=== PATIENT | female | born 1950 | race Caucasian/White ===

== ENCOUNTER 2019-06-17 06:49 | Day surgery (SDC) | payer MEDICARE ==
[2019-06-16 11:51] VITALS: BMI 25.5
[2019-06-17] MEDS ORDERED: Prevnar 13-Val Conj/PF 0.5 ML SYRINGE IM ONE (09:00)
[2019-06-17] MEDS ORDERED: Iopamidol-M 300 61% 15 ML VIAL ONE (09:55)
[2019-06-17 11:33] VITALS: BP 132/77; TEMP 98
--- NOTE | 2019-06-17 13:16 | RAD ---
Myelogram lumbar Myelogram cervical: DATE: 06/17/2019 HISTORY: 68-year-old female with cervicalgia, low back pain, and lumbar radiculopathy. TECHNIQUE: Signed informed consent obtained. Patient placed prone on fluoroscopy table. Lower back prepped and d raped in usual sterile fashion. 25-gauge needle used to apply buffered lidocaine. 22-gauge spinal needle advanced under intermittent fluoroscopy from right paramedian interlaminar approach at L4-5. 1 0 mL CSF slowly drained and discarded. 10 mL Isovue-M 300 slowly injected into the thecal sac. Needle removed. Fluoroscopy table tilted prone Trendelenburg allowing contrast to enter cervical spin e. Patient taken to CT scan. Patient tolerated procedure well. No complications. IMPRESSION: Successful lumbar and cervical myelogram
--- NOTE | 2019-06-17 15:17 | CT ---
CT LUMBAR MYELOGRAM: INDICATION: History of lumbar disk degenerative disease and radiculopathy. COMPARISON: Prior MRI of the lumbar spine dated 07/03/2015. FINDINGS: Since the comparison examination, there has been revision of the posterolateral interbody fusion, now with a left pedicular and interconnecting kasia construct spanning L2 through S1. On the right, the p osterior lateral interbody fusion construct spans L1 through L4. There are laminectomy changes at L2 -3 and L3-4. There is postoperative change of a right L2-3 facetectomy and laminectomy. There are bi lateral SI joint arthrodesis screws and remote pedicle screw hole sites on the right at L5 and S1. No definite bridging bone is seen involving the intervertebral disk spaces at L2-3, L3-4, and L5-S1. Conus is seen to terminate at approximately L1. Visualized aspects of the retroperitoneum are unremarkable-appearing. At L5-S1, there is a residual disk-osteophyte complex with loss of disk space height and facet hypert rophy inducing severe right and mild to moderate left neural foraminal narrowing which has progressed from the prior exam. At L4-5, there is a residual disk bulge with facet hypertrophy inducing mild bilateral neural foramin al narrowing which is slightly more pronounced than on the prior exam. At L3-4, there is no appreciable central canal narrowing. There is a residual osteophyte complex ind ucing mild bilateral neural foraminal narrowing, right greater than left. This is slightly more pron ounced than on the prior exam. At L2-3, there is stable mild right neural foraminal narrowing, but no appreciable central canal or n eural foraminal narrowing. At L1-2, there is a mild broad-based bulge. No appreciable central canal or neural foraminal narrowi ng. At T12-L1, there is no appreciable central canal or neural foraminal narrowing. IMPRESSION: Postoperative lumbar spine with multilevel neural foraminal narrowing as detailed above. POS: KERRY
--- NOTE | 2019-06-17 15:17 | CT ---
CT CERVICAL MYELOGRAM 06/17/19 INDICATION: History of cervical neck pain and radiculopathy. COMPARISON: MR of the cervical spine dated 07/03/15. TECHNIQUE: Multiple CT images were obtained with introduction of intrathecal administration of Isovue solution. Please see the separately dictated lumbar myelogram for details concerning the injection technique. FINDINGS: There is stable postoperative changes of an anterior interbody fusion of C4-5 and C5-6. There is rachael d osseous incorporation of interbody bone graft. There is ankylosis of the facet complexes from C2 th rough C6 bilaterally. There are posterior facet fusion devices seen at the C4-5 and C5-6 levels. There is slight anterior translation of C6 on C7 which is likely degenerative in nature. The visualized aspects of the posterior fossa appear within normal limits. No acute fracture is evide nt. At C2-C3, there is severe left and moderate to severe right facet joint degenerative change but no ap preciable central canal or neural foraminal narrowing. At C3-C4, there is severe bilateral facet joint degenerative change. There is no appreciable central canal or neural foraminal narrowing. At C4-C5, there is no appreciable central canal or neural foraminal narrowing. At C5-C6, there is no appreciable central canal or neural foraminal narrowing. At C6-C7, there is no appreciable central canal or neural foraminal narrowing. There is advanced face t joint degenerative change particularly on the right. At C7-T1, there is no appreciable central canal or neural foraminal narrowing. The visualized lung apices demonstrates a small sub 4 mm pulmonary nodule within the right upper lobe . No enlarged lymph nodes are evident. IMPRESSION: 1. Postoperative cervical spine consistent with an ACDF at C4-5 and C5-6. 2. Ankylosis of the posterior facet complexes of C2 through C6. There is operative ankylosis of the posterior facets at C4-5 and C5-6. 3. Slight grade I anterior translation of C6 on C7 is likely degenerative. 4. No appreciable central canal or neural foraminal narrowing demonstrated. POS: BH
== END 2019-06-17 10:45 | disposition home or self-care (01) ==
LOC: RAD 06:49
PROVIDERS: ATTEND Neurological Surgery
PROC: B01B1ZZ Fluoroscopy of Spinal Cord using Low Osmolar Contrast (ICD-10-PCS; principal; 2019-06-17)
DX: M43.22 Fusion of spine, cervical region (principal); M51.16 Intervertebral disc disorders with radiculopathy, lumbar region; M48.061 Spinal stenosis, lumbar region without neurogenic claudication; F41.9 Anxiety disorder, unspecified; M19.90 Unspecified osteoarthritis, unspecified site; I10 Essential (primary) hypertension; F32.9 Major depressive disorder, single episode, unspecified; M79.7 Fibromyalgia; Z79.891 Long term (current) use of opiate analgesic; Z79.899 Other long term (current) drug therapy; Z88.0 Allergy status to penicillin; Z91.040 Latex allergy status; Z98.1 Arthrodesis status; Z98.890 Other specified postprocedural states
CPT/HCPCS: 62305; 72126; 72132

== ENCOUNTER 2019-07-23 13:02 | Outpatient (CLI) | payer MEDICARE ==
--- NOTE | 2019-07-23 14:36 | BD ---
DEXA BONE MINERAL DENSITY STUDY: HISTORY: Osteoporosis screening. COMPARISON: None. FINDINGS: BMD (g/cm2) Right Forearm: One-third 0.624 T-Score: -1.2 0.6 Mid 0.549 T-Score: -1.1 0.7 Ultra distal 0.430 T-Score: 0.7 2.0 Total 0.548 T-Score: -0.6 1.1 Left Forearm: One-third 0.657 T-Score: -0.6 1.2 Mid 0.545 T-Score: -1.1 0.6 Ultra distal 0.461 T-Score: 0.3 1.6 WHO CLASSIFICATION: Osteopenia Impression: Osteopenia with elevated fracture risk. POS: HOME
== END 2019-07-23 13:03 | disposition home or self-care (01) ==
LOC: BICMAMMO 13:02
PROVIDERS: ATTEND Internal Medicine Rheumatology
DX: M81.0 Age-related osteoporosis without current pathological fracture (principal); M85.832 Other specified disorders of bone density and structure, left forearm; M85.831 Other specified disorders of bone density and structure, right forearm
CPT/HCPCS: 77080

== ENCOUNTER 2019-12-05 17:21 | Inpatient (IN) | payer MEDICARE, OTHER ==
[2019-12-05 18:02] LABS: #Eosinphils 0.1 thou/uL (0.0-0.7); #Lymphocytes 1.7 thou/uL (1.20-3.40); #Monocytes 0.7 thou/uL (0.11-0.59); #Neutrophils 3.8 thou/uL (1.40-6.50); %Basophils 0.7 % (0.0-1.0); %Eosinophils 1.5 % (0.0-10.0); %Lymphocytes 26.6 % (21.0-51.0); %Monocytes 11.5 % (0.0-10.0); %Neutrophils 59.7 % (42.0-75.0); Hemoglobin 9.3 g/dL (12.0-16.0); Mean Corpuscular Hemoglobin 21.4 pg (27.0-31.0); Mean Corpuscular Volume 71.4 fL (78.0-98.0); Mean Platelet Volume 10.8 fL (7.4-10.4); Platelet Count 325 thou/uL (130-400); RBC Distribution Width 16.8 % (11.5-14.5); Red Blood Cell (RBC) Count 4.35 mill/uL (4.20-5.40); White Blood Cell (WBC) Count 6.4 thou/uL (4.8-10.8)
[2019-12-05] MEDS ORDERED: Diltiazem 125 MG/25 ML ONE (18:13)
[2019-12-05 18:15] LABS: ALT (SGPT) 19 U/L (8-55); AST (SGOT) 35 U/L (5-34); Alkaline Phosphatase 145 U/L (40-110); Anion Gap 14 mmol/L (10-20); Anisocytosis SLIGHT = 6-15 cells (100X) (0-5/hpf); BUN (Urea Nitrogen) 17 mg/dL (9.8-20.1); Bilirubin, Total 0.2 mg/dL (0.2-1.2); Calc. Creatinine Clearance 0 mL/min (70-130); Calcium 9.2 mg/dL (7.8-10.44); Carbon Dioxide 25 mmol/L (23-31); Chloride 105 mmol/L (98-107); Estimated GFR-MDRD 74; Globulin 3.5 g/dL (2.4-3.5); Glucose 95 mg/dL (80-115); Hypochromia SLIGHT = 6-15 cells (100X) (0-5/hpf); MDiff Complete? YES; Microcytosis SLIGHT = 6-15 cells (100X) (0-5/hpf); Ovalocytes SLIGHT = 2-5 cells (100X) (0-1/hpf); Platelet Morphology Comment Appears Adequate; Polychromasia SLIGHT = 2-3 cells (100X) (0-2/hpf); Potassium 4.1 mmol/L (3.5-5.1); Protein, Total 7.5 g/dL (6.0-8.3); Sodium 140 mmol/L (136-145)
[2019-12-05] MEDS ORDERED: Aspirin Chewable 81 MG TAB ONE (18:28)
--- NOTE | 2019-12-05 18:32 | PDOC.HHP ---
Hospitalist HPI - History of Present Illness Heart palpitations History of Present Illness: PCP: Dr. Cb Jenkins The patient is a 68-year-old female with a past medical history significant for cardiac arrhythmia (atrial fibrillation, not on any anticoagulation) with multiple cardiac ablations (followed by Dr. Manzano), atrial septal defect and iron deficiency anemia that presents to the emergency department for the above complaint. Patient reports having heart palpitations over the past 3 to 4 days. She reports that she feels like her heart is racing. She reports associated dizziness, SOB, weakness and fatigue. She denies any headache, ataxia, focal motor weakness, changes in speech or vision. Denies any chest pain, cough, wheezing or hemoptysis. She had recent cardiac ablation with Pacemaker insertion on 11/22/19. Today, she called Dr. Lubin, who instructed her to take an extra half dose of her home medication Bystolic. She took 2.5mg at approximately 1430 this afternoon as instructed. This did not relieve any of her symptoms. She was instructed to go to the emergency department for further evaluation. She denies any chest pain or swelling to her lower extremities. She reports some a ssociated shortness of breath. Denies any history of asthma/COPD, cough or wheezing. She denies any recent fever or chills. She denies any abdominal pain, hemoptysis, hematochezia or melena. She reports recently starting an iron supplement patch, that she ordered online. She was unable to tolerate iron infusions in the past. She has no other complaints at this time. ED Course: VITAL SIGNS [place] Dec 05, 2019 17:23 STANLEY Benson Lauren BP: 105/85, Pulse: 138, Resp: 36, Temp: 98.8 (Oral), Pain: 4, O2 sat: 96 on (Room Air), Time: 12/05/2019 17:23. VITAL SIGNS [place] Dec 05, 2019 17:31 STANLEY Field Cheryl BP: 124/85, Pulse: 140, Resp: 23, Temp: 98.2 (Oral), O2 sat: 99 on (Room Air), Time: 12/05/2019 17:31. Medication Administration: aspirin oral 325 mg Oral Ordered 18:24 12/05/2019 dilTIAZem intravenous 5 mg/hr IV Fluid Infusion Given 18:23 12/05/2019 sodium chloride 0.9 % intravenous 1 L IV Fluid Infusion Given 18:15 12/05/2019 dilTIAZem intravenous 20 mg IV Push Given 18:10 12/05/2019 Hospitalist ROS - Review of Systems All other systems reviewed; all pertinent +/- noted in HPI/Subj - Medication Medications: Bystolic [place] Dec 05, 2019 18:07 STANLEY Lemons Jennifer tablet : Strength - 5 mg : ORAL Patient Dose: 1 tab(s) Oral once a day. Cymbalta [place] Dec 05, 2019 18:08 STANLEY Lemons Jennifer capsule,delayed release(DR/EC) : Strength - 60 mg : ORAL Patient Dose: 1 tab(s) Oral once a day. ALPRAZolam [place] Dec 05, 2019 18:08 STANLEY Lemons Jennifer tablet : Strength - 1 mg : ORAL Patient Dose: 1 tab(s) Oral As Needed. QUEtiapine [place] Dec 05, 2019 18:09 STANLEY Lemons Jennifer tablet : Strength - 50 mg : ORAL Patient Dose: 1 tab(s) Oral once a day (at bedtime). Pepcid oral [place] Dec 05, 2019 18:09 STANLEY Lemons Jennifer tablet : Strength - 20 mg : ORAL Patient Dose: 1 tab(s) Oral once a day (in the morning). Iron patch, unknown strength, takes daily. Allergies: penicillins, latex Hospitalist History - Past Medical History Source: patient, RN notes reviewed Cardiac: reports: AFIB (Status post ablation, discontinued Coumadin), Other (Atrial septal defect) Gastrointestinal: reports: GERD Heme/Onc: reports: Iron deficiency anemia (Started iron patch, purchased online.) Psych: reports: Depression Musculoskeletal: reports: Chronic low back pain Rheumatologic: reports: Fibromyalgia - Past Surgical History Past Surgical History: reports: Other (Cardiac ablation x3, most recent 11/21. Pacemaker. Back surgery, bilateral knee surgery) - Family History Family History: reports: cardiac disorder (Brother) - Social History Smoking Status: Never smoker Alcohol: reports: None Drugs: reports: none Living Situation: With Family Occupation: Retired Activity level: independent ambulation - Exam General Appearance: NAD, awake alert. negative: ill appearing General - other findings: Anxious appearing ENT: normocephalic atraumatic Neck: supple, symmetric, no JVD Heart: no gallops, no rubs, irregular, II/IV Respiratory: CTAB, no wheezes, no rales, no ronchi, normal chest expansion, tachypneic (Mild) Gastrointestinal: soft, non-tender, non-distended, normal bowel sounds, no bruit, no guarding, no rigidity Extremities: no cyanosis, no edema Skin: no rashes Neurological: cranial nerve grossly intact, no focal deficits Musculoskeletal: normal tone, normal strength Psychiatric: normal affect, A&O x 3 Hospitalist Results - Labs Result Diagrams: 12/05/19 17:49 12/05/19 17:49 Lab results: WBC 6.4 thou/uL (4.8-10.8) 12/05/19 17:49 Hgb 9.3 g/dL (12.0-16.0) L 12/05/19 17:49 Hct 31.1 % (36.0-47.0) L 12/05/19 17:49 MCV 71.4 fL (78.0-98.0) L 12/05/19 17:49 Plt Count 325 thou/uL (130-400) 12/05/19 17:49 Neutrophils % 59.7 % (42.0-75.0) 12/05/19 17:49 Sodium 140 mmol/L (136-145) 12/05/19 17:49 Potassium 4.1 mmol/L (3.5-5.1) 12/05/19 17:49 Chloride 105 mmol/L (98-107) 12/05/19 17:49 Carbon Dioxide 25 mmol/L (23-31) 12/05/19 17:49 BUN 17 mg/dL (9.8-20.1) 12/05/19 17:49 Creatinine 0.78 mg/dL (0.6-1.1) 12/05/19 17:49 Glucose 95 mg/dL (80-115) 12/05/19 17:49 Calcium 9.2 mg/dL (7.8-10.44) 12/05/19 17:49 Total Bilirubin 0.2 mg/dL (0.2-1.2) 12/05/19 17:49 AST 35 U/L (5-34) H 12/05/19 17:49 ALT 19 U/L (8-55) 12/05/19 17:49 Alkaline Phosphatase 145 U/L (40-110) H 12/05/19 17:49 Troponin I 0.047 ng/mL (< 0.028) H 12/05/19 17:49 B-Natriuretic Peptide 185.1 pg/mL (0-100) H 12/05/19 17:49 Serum Total Protein 7.5 g/dL (6.0-8.3) 12/05/19 17:49 Albumin 4.0 g/dL (3.4-4.8) 12/05/19 17:49 - EKG Interpretation EKG: Rate of 140. Rhythm is supraventricular tachycardia versus atrial fibrillation with rapid ventricular response. Normal axis. KS interval is absent. Normal QRS duration. T wave inversions are present in lead II and aVF and lead III and ST segment depression in V5 V6 consistent with inferior lateral ischemia. Hospitalist H&P A/P - Problem (1) SVT (supraventricular tachycardia) Code(s): I47.1 - SUPRAVENTRICULAR TACHYCARDIA Status: Acute (2) Heart palpitations Code(s): R00.2 - PALPITATIONS Status: Acute (3) Elevated troponin Code(s): R77.8 - OTHER SPECIFIED ABNORMALITIES OF PLASMA PROTEINS Status: Acute (4) History of atrial fibrillation Code(s): Z86.79 - PERSONAL HISTORY OF OTHER DISEASES OF THE CIRCULATORY SYSTEM Status: Acute (5) Atrial septal defect Code(s): Q21.1 - ATRIAL SEPTAL DEFECT Status: Chronic (6) Iron deficiency anemia Code(s): D50.9 - IRON DEFICIENCY ANEMIA, UNSPECIFIED Status: Chronic (7) Fibromyalgia Status: Chronic (8) Depression Code(s): F32.9 - MAJOR DEPRESSIVE DISORDER, SINGLE EPISODE, UNSPECIFIED Status: Chronic - Plan Plan: 68/F with H cardiac arrhythmia, ASD, DEVANTE presents for heart palpitations. Admit to telemetry floor, observation status. Expected length of stay less than 2 midnights. Presented tachycardic 138 bpm, tachypneic 36 RR, NL BP and SPO2. EKG SVT 140 bpm, T inversions in leads II, 3, aVF. ST depression in leads V5 and V6. Troponin 0.047, BNP 185.1. Hgb 9.3, HCT 31.1 Hear Score 6. Wells PE score 3, moderate risk. CHADVASC score 2. HASBLED score 1. #SVT Upon assessment, HR [id number]. BP stable. Intermittent atrial fibrillation on monitor. Cardizem 7.5 mg/HR infusing. Give metoprolol 5 mg IVP x1 now. Give Lovenox 1 mg/kg. Continue aspirin. Consult cardiology and electrophysiology. Obtain recent echo and cardiac stress test results from Dr. Arrieta's office. Check TSH, FLP, mag level, UA. Check D-dimer. #Heart palpitations Likely related to problem 1. #Elevated troponins Likely demand ischemia. Trend troponins. salon professional. #History of atrial fibrillation History of cardiac ablations x3. Most recent ablation 11/22/2019. Currently not on any anticoagulation. She has taken Coumadin in the past. #Atrial septal defect Per patient, discovered in 2001. #Iron deficiency anemia Appears stable. Presented Hgb 9.3, HCT 31.1. Denies any hematochezia, melena, hemoptysis. Reports starting iron patch yesterday, that she purchased online. Reports that she does not tolerate iron infusions. Will check iron studies. #Fibromyalgia Continue home dose Cymbalta. #Depression Appears stable. Denies SI/HI. Continue patient's home dose of Cymbalta. No DVT prophylaxis. No GI prophylaxis. Full code. Designated medical decision-maker is her Jose at [phone]. Discussed case with Dr. Putnam. .
[2019-12-05 18:37] LABS: CKMB 0.9 ng/mL (0-6.6)
[2019-12-05] MEDS ORDERED: Nitroglycerin 0.4 MG TAB (25 Tab Bottle) SL PRN (18:53)
[2019-12-05] MEDS ORDERED: Enoxaparin Sodium 100 MG/ML SYRINGE ONE (18:55)
[2019-12-05] MEDS ORDERED: Metoprolol Tartrate 5 MG/5 ML VIAL ONE (18:55)
[2019-12-05] MEDS ORDERED: Acetaminophen 325 MG TAB PO PRN (18:59)
[2019-12-05] MEDS ORDERED: Ondansetron ODT 4 MG TAB PO PRN (18:59)
[2019-12-05] MEDS ORDERED: Ondansetron PF 4 MG/2 ML Vial IVP PRN (18:59)
--- NOTE | 2019-12-05 19:29 | RAD ---
Portable frontal chest radiograph: 12/05/2019 COMPARISON: 08/11/2019 HISTORY: Palpitations, tachycardia FINDINGS: Lungs are clear. Heart and mediastinal contours appear within normal limits. There is a sin gle lead transvenous pacing device inserted via a left subclavian approach with a lead overlying the region of the right atrium. IMPRESSION: No acute findings.
[2019-12-05 19:37] LABS: Reticulocyte Count 1.1 % (0.5-1.5)
[2019-12-05 19:40] LABS: PTT 31.9 sec (22.9-36.1); Prothrombin Time 13.3 sec (12.0-14.7)
[2019-12-05 19:41] LABS: D-Dimer Test 1.76 *mcg/mL (0.27-0.43)
[2019-12-05 19:47] LABS: Iron 25 ug/dL (50-170); Iron Binding Capacity, Total 419 mcg/dL (265-497)
[2019-12-05 19:48] LABS: Magnesium 2.1 mg/dL (1.6-2.6)
[2019-12-05 19:57] LABS: Troponin I 0.045 ng/mL (< 0.028)
[2019-12-05 20:12] LABS: Ferritin 10.58 ng/mL (10-291); Thyroid Stimulating Hormone 0.4116 uIU/mL (0.35-4.94)
[2019-12-05] MEDS ORDERED: Diltiazem HCl 125 MG, Admixture Fee 1 EACH in Sodium Chloride 0.9% 100 ML IVPB SCH (22:00)
[2019-12-05 23:10] LABS: Bacteria/HPF None Seen HPF (None Seen); Bilirubin Negative (Negative); Blood, Urine Negative (Negative); Clarity Clear (Clear); Glucose, Urine (Dipstick) Normal (Negative); Ketone, Urine Negative (Negative); Leukocyte 75 Leu/uL (Negative); Nitrite Negative (Negative); Protein, Urine (Dipstick) 10 mg/dL (Neg-Trace); RBC/HPF 0-3 HPF (0-3); Squamous Epithelial None Seen HPF (0-3); Urobilinogen Normal mg/dL (Less than 2); pH, Urine 6.5 (5.0-9.0)
[2019-12-05 23:53] LABS: Troponin I 0.043 ng/mL (< 0.028)
[2019-12-06 00:20] VITALS: BMI 35.6
[2019-12-06] MEDS: ALPRAZolam 1 MG TAB PO PRN ×2 (00:42→20:06)
[2019-12-06] MEDS ORDERED: Digoxin 0.5 MG/2 ML AMP SLOW IVP SCH (06:00)
[2019-12-06 06:27] LABS: Band 1 % (5-11); Eosinophils 4 % (0-10); Hemoglobin 7.7 g/dL (12.0-16.0); Hypochromia SLIGHT = 6-15 cells (100X) (0-5/hpf); Lymphocytes 40 % (21-51); MDiff Complete? YES; Mean Corpuscular HGB CONC 30.9 g/dL (32.0-36.0); Mean Corpuscular Hemoglobin 21.9 pg (27.0-31.0); Mean Corpuscular Volume 70.8 fL (78.0-98.0); Mean Platelet Volume 10.6 fL (7.4-10.4); Microcytosis SLIGHT = 6-15 cells (100X) (0-5/hpf); Monocytes 1 % (0-10); Neutrophil 54 % (42-75); Platelet Count 252 thou/uL (130-400); Platelet Morphology Comment Appears Adequate; RBC Distribution Width 16.8 % (11.5-14.5); Red Blood Cell (RBC) Count 3.53 mill/uL (4.20-5.40); White Blood Cell (WBC) Count 6.3 thou/uL (4.8-10.8)
[2019-12-06] MEDS ORDERED: Enoxaparin Sodium 100 MG/ML SYRINGE SC SCH (09:00)
[2019-12-06 09:14] LABS: Anion Gap 10 mmol/L (10-20); BUN (Urea Nitrogen) 13 mg/dL (9.8-20.1); Calc. Creatinine Clearance 109 mL/min (70-130); Calcium 9.2 mg/dL (7.8-10.44); Carbon Dioxide 25 mmol/L (23-31); Cardiac Risk 3.1 (Less than 4.5); Chloride 108 mmol/L (98-107); Cholesterol 190 mg/dl (< 200 Desired); Estimated GFR-MDRD 82; Glucose 97 mg/dL (80-115); HDL Cholesterol 62 mg/dL (>60 Neg Risk); LDL Cholesterol, Calculated 107 mg/dL; Potassium 3.6 mmol/L (3.5-5.1); Sodium 139 mmol/L (136-145); Triglycerides 105 mg/dL (Less than 150)
[2019-12-06] MEDS: Nebivolol HCl 5 MG TAB PO SCH (09:47)
[2019-12-06] MEDS: DULoxetine 60 MG CAP PO SCH (09:47)
[2019-12-06] MEDS: Aspirin 81 mg Enteric Coated Tablet PO SCH (09:47)
[2019-12-06 11:04] LABS: SARS-CoV-2 MS2 Positive; SARS-CoV-2 N Gene Negative; SARS-CoV-2 S Gene Negative; SARS-CoV-2 by NAA Not Detected (NotDetected); SARS-CoV-2 orf1ab Negative
[2019-12-06] MEDS ORDERED: Morphine 2 MG/ML VIAL SLOW IVP PRN (12:18)
[2019-12-06] MEDS ORDERED: Flecainide 50 MG TAB PO SCH (12:30)
--- NOTE | 2019-12-06 13:33 | PDOC.HOSPP ---
- Subjective Encounter Date: 12/06/19 Encounter Time: 10:15 Subjective: no chest pain, has palpitations/uneasy feeling no fever, cough or myalgias has chronic back pain - Objective Vital Signs & Weight: Vital Signs (12 hours) Temp Pulse Resp BP Pulse Ox 12/06/19 11:56 98.6 F 127 H 18 124/88 100 12/06/19 07:44 98.1 F 128 H 18 128/85 100 12/06/19 06:31 82 12/06/19 04:40 63 16 114/69 12/06/19 01:44 82 18 112/62 99 Weight Weight 194 lb 12.8 oz I&O: 12/05/19 12/06/19 12/07/19 06:59 06:59 06:59 Intake Total 700 Output Total 1260 Balance -560 Result Diagrams: 12/06/19 05:01 12/06/19 08:39 Hospitalist ROS - Medication Medications: Active Medications Generic Name Dose Route Start Last Admin Trade Name Freq PRN Reason Stop Dose Admin Alprazolam 1 mg 12/05/19 19:01 12/06/19 00:42 Alprazolam 1 Mg Tab PO 1 mg DAILYPRN PRN Administration Anxiety Aspirin 81 mg 12/06/19 09:00 12/06/19 09:47 Aspirin 81 Mg Enteric Coated Tablet PO 81 mg DAILY ANGELA Administration Duloxetine HCl 60 mg 12/06/19 09:00 12/06/19 09:47 Duloxetine 60 Mg Cap PO 60 mg DAILY ANGELA Administration Diltiazem HCl 125 mg/ 125 mls @ 7.5 mls/hr 12/05/19 22:00 12/06/19 09:45 Miscellaneous Medication 1 IVPB 125 mls each/ Sodium Chloride INF ANGELA Administration Protocol Morphine Sulfate 2 mg 12/06/19 12:18 12/06/19 12:25 Morphine 2 Mg/Ml Vial SLOW IVP 2 mg Q6H PRN Administration Severe Pain (7-10) Nebivolol 5 mg 12/06/19 09:00 12/06/19 09:47 Nebivolol Hcl 5 Mg Tab PO 5 mg DAILY ANGELA Administration Quetiapine Fumarate 50 mg 12/05/19 21:00 12/05/19 22:53 Quetiapine Fumarate 25 Mg Tab PO 50 mg HS ANGELA Administration - Exam General Appearance: awake alert Eye: PERRL, anicteric sclera ENT: no oropharyngeal lesions, moist mucosa Neck: supple, no JVD Heart: no murmur, irregular Respiratory: no wheezes, no rales Gastrointestinal: soft, non-tender, non-distended, normal bowel sounds Extremities: no cyanosis, no edema Neurological: cranial nerve grossly intact, no focal deficits Psychiatric: normal affect, A&O x 3 Hosp A/P (1) Atrial fibrillation with RVR Code(s): I48.91 - UNSPECIFIED ATRIAL FIBRILLATION Status: Acute (2) History of atrial fibrillation Code(s): Z86.79 - PERSONAL HISTORY OF OTHER DISEASES OF THE CIRCULATORY SYSTEM Status: Chronic (3) Atrial septal defect Code(s): Q21.1 - ATRIAL SEPTAL DEFECT Status: Chronic (4) Depression Code(s): F32.9 - MAJOR DEPRESSIVE DISORDER, SINGLE EPISODE, UNSPECIFIED Status: Chronic Qualifiers: Depression Type: major depressive disorder Psychotic features: without psychotic features (5) Fibromyalgia Status: Chronic (6) Iron deficiency anemia Code(s): D50.9 - IRON DEFICIENCY ANEMIA, UNSPECIFIED Status: Chronic - Plan is on cardizem drip, recent pcm insertion on 11/21, h/o prior ablations, EP consultation h/h 09/10, mcv is 70, likely has chronic anemia, needs anticoagulation, will consult GI continue bystolic, full dose lovenox (stop if she bleeds), seroquel, synthroid dc aspirin for now change status to inpatient, will require procedures given low Hb and rvr with afib
[2019-12-06] MEDS ORDERED: HYDROcodone/Acetaminophen 10/325 mg Tablet PO PRN (14:53)
--- NOTE | 2019-12-06 14:56 | CON ---
DATE OF CONSULTATION: CONSULTING PHYSICIAN: Ole Lubin MD. REASON FOR CONSULTATION: I am evaluating Ms. Blue at [facility] for recurrent atrial tachycardia with recent ablation . PROBLEM LIST: 1. Atrial tachycardia. a. Status post atrial tachycardia ablation on 11/23/2019 with 25-minute radiofrequency energy lesions delivered close proximity to the sinoatrial node. 2. Sick sinus syndrome status post single-chamber right atrial lead pacemaker on 11/24/2019. 3. History of atrial fibrillation status post ablation in 2003 with repeat in 2011. 4. Patent foramen ovale. 5. Hypertension. 6. Fibromyalgia. 7. Cardiac evaluation in summer with normal echocardiogram and normal stress test, preserved left ventricular ejection fraction of 60% to 65%. 8. Iron-deficiency anemia, chronic. SUBJECTIVE: Ms. Blue is a pleasant 68-year-old woman who began experiencing elevated heart rate of approximately 130 to 140 beats per minute over the weekend. She was given instruction to increase her Bystolic, which not adequately rate controlled her arrhythmias and she then presented to the emergency room for further evaluation. She was given a dose of IV Lopressor 5 mg and started on a diltiazem drip for rate control. She was in sinus rhythm with demand atrial pacing this morning since being placed on telemetry, but converted back to atrial tachycardia at approximately 5:00 a.m. with ventricular rates of 140 beats per minute. She feels anxious with her palpitations, but otherwise has no complaints at the moment. PAST MEDICAL HISTORY: As above. ALLERGIES: LATEX; PENICILLIN; ADVERSE REACTIONS TO TOPROL-XL, CAUSES FATIGUE; AND BYSTOLIC, WHICH CAUSES HEADACHE. HOME MEDICATION LIST: 1. Xanax 0.5 mg as needed. 2. Aspirin 325 mg daily. 3. Klonopin 1 mg daily. 4. Cymbalta 60 mg. 5. [employer] 10/325 as needed. 6. Lidoderm patch 5% as indicated. 7. Bystolic 10 mg daily. 8. Zofran as needed. 9. Oxycodone as needed. 10. Lyrica 50 mg. 11. Seroquel 50 mg. SOCIAL HISTORY: She is . She has 2 adult children who are a source of extreme stress. She denies alcohol, tobacco, or illicit drug use. FAMILY HISTORY: Noncontributory. OBJECTIVE: VITAL SIGNS: Temperature 98.6 degrees Fahrenheit, pulse 128 beats per minute, oxygen 100% on room air, respirations 18, and blood pressure 128/85. GENERAL: The patient is alert and oriented. Her speech is clear. She appears anxious and tearful, but in no apparent distress at the time of exam. Resting in bed. Height 5 feet 2 inches, weight 194 pounds/88 kg, BMI 35. HEENT: Normocephalic and atraumatic. Her sclerae anicteric. EOMs are intact. Oral mucosa is moist and pink with adequate dentition. NECK: Supple without jugular venous distention. There is no lymphadenopathy. LUNGS: Clear to auscultation bilaterally. HEART: Rate is rapid, but regular. PMI nondisplaced. There is a right-sided precordial pacemaker, recently implanted, site is healing nicely with edges well-approximated, minimal swelling and bruising, and no drainage. ABDOMEN: Obese, soft, and nontender without palpable masses. EXTREMITIES: Warm and dry to touch, well perfused without clubbing, cyanosis, or edema. NEUROLOGIC: Appears grossly intact. Nonfocal. Gait was not assessed, but she is easily mobile in bed independently. TELEMETRY AND EKG: Initial EKG shows atrial tachycardia with a ventricular rate of 138 beats per minute and narrow QRS, 1:1 conduction. Telemetry shows demand atrial pacing with ventricular sensing yesterday and over the night until 5:00 a.m. when there was an obvious conversion back to her atrial tachycardia with similar rates. Rate control has been improving with re-addition of diltiazem and is now in the 120s. LABORATORY DATA: WBC 6.3, hemoglobin 9.3 on admission and currently 7.7, platelet count 252. Chemistry unremarkable. Creatinine 0.71 and potassium 3.6. TSH 0.41. Magnesium 2.1. Echocardiogram from 08/24/2019 by outside linux engineer showed preserved LVEF of 60% to 65%. Myocardial perfusion study, no reversible or fixed defect suggestive of ischemia or scar. Normal LV systolic function noted. IMPRESSION: 1. Early recurrence of atrial tachycardia status post ablation on 11/23/2019. 2. Sinus node dysfunction status post single-chamber pacemaker with intact AV dayanna conduction. 3. Anemia. 4. Recent cardiac evaluation with preserved left ventricular ejection fraction and normal myocardial perfusion study. PLAN AND RECOMMENDATIONS: Ms. Blue is a pleasant 68-year-old woman who recently underwent EP study and extensive right atrial ablation for an atrial tachycardia that was in close proximity to the sinoatrial node. The following day, she was seen to have pauses up to 8 seconds and underwent a single-chamber pacemaker implant with right atrial lead. She is seen to have intact AV dayanna conduction. She was having persistent tachycardia episodes at home and presented to the hospital where she was placed on a diltiazem drip and was also given an IV push of digoxin. I would like to maintain sinus rhythm overnight, but went back into this rapid atrial tachycardia this morning. Despite that, she is quite stable and minimally symptomatic. I have increased her diltiazem drip and we will continue to titrate for goal less than 100 beats per minute. I suspect she will spontaneously convert, but given the extensive right atrial ablation she just underwent, I will place her on flecainide 100 mg b.i.d. and plan to continue this medication for approximately 6 weeks while the inflammation subsides from the ablation. I will also have her pacemaker interrogated and we will attempt to pace termination today. If she persists in her atrial tachycardia, she may require cardioversion tomorrow. We will check a 12-lead EKG in the morning to assess QRS with the initiation of flecainide. If she converts later today, she would likely be okay to discharge home from an EP perspective on flecainide 100 mg p.o. b.i.d. in addition to diltiazem CD 120 mg daily. An outpatient arrangements for followup will be made. Her hemoglobin did drop significantly overnight and this may warrant further medical evaluation before she is cleared for discharge. Thank you for allowing me to participate in the care of this patient. This plan was made in correlation and collaboration with Dr. Ole Lubin. Job ID: [id number]
[2019-12-06] MEDS: Flecainide 50 MG TAB PO SCH (20:06)
--- NOTE | 2019-12-06 21:32 | CON ---
DATE OF CONSULTATION: 12/06/2019 CHIEF COMPLAINT: Anemia. HISTORY OF PRESENT ILLNESS: Ms. Blue is a 68-year-old woman, who has a history of atrial fibrillation, who presented to the emergency room with heart palpitations and shortness of breath and weakness. She was given diltiazem with improvement in her heart rate. However, she has remained in atrial fibrillation, and GI was consulted to evaluate anemia due to concern for need for anticoagulation in addition to significant anemia. The patient reports a history of iron deficiency anemia, for which she has received blood transfusion in the past. She has been on anticoagulation, but this has been over 10 years ago. In the past, Dr. Darling has performed endoscopy for her and she is not sure of what these results were. She had moved to [place] and had an upper endoscopy there around 3 years ago and that was negative as far as she is aware. She had a colonoscopy, she believes most recently 6 years ago. With this hospital stay, she was found to have a hemoglobin of 7.7 with an MCV of 70 and a ferritin of 10, low iron and high TIBC. PAST MEDICAL HISTORY: Atrial fibrillation, status post multiple ablations. Gastroesophageal reflux disease, fibromyalgia, back pain, iron deficiency anemia, depression. PAST SURGICAL HISTORY: Pacemaker placement, back surgery, knee surgery. FAMILY HISTORY: Negative for GI malignancy. SOCIAL HISTORY: No alcohol, tobacco, or drugs. ALLERGIES: PENICILLIN, LATEX. CURRENT INPATIENT MEDICATIONS: 1. Aspirin. 2. Diltiazem drip. 3. Duloxetine. 4. Flecainide. 5. Bystolic. 6. Quetiapine. REVIEW OF SYSTEMS: Negative x10 systems reviewed except as stated in history of present illness. PHYSICAL EXAMINATION: VITAL SIGNS: Temperature 98.3, pulse 77, blood pressure 123/62. GENERAL: She is in no acute distress. Alert and oriented x3. HEENT: Eyes have no scleral icterus. Oropharynx is clear without lesions. No cervical or supraclavicular lymphadenopathy. LUNGS: Clear to auscultation bilaterally. HEART: Regular rate and rhythm without murmur. ABDOMEN: Soft, nontender, and nondistended. Bowel sounds are present. EXTREMITIES: No lower extremity edema. NEUROLOGIC: Cranial nerves are grossly intact. LABORATORY DATA: Creatinine 0.71. Iron 25, TIBC 419, ferritin 10.5. TSH 0.411. INR 1.0. White blood cell count 6.3, hemoglobin 7.7, MCV 70.8, platelets 252. IMPRESSION: 1. Iron deficiency anemia. 2. Atrial fibrillation with RVR, now rate controlled on diltiazem. Cardiology would like to start her on anticoagulation. Given the severe iron deficiency anemia, they would like us to evaluate for bleeding source prior to starting anticoagulation. RECOMMENDATIONS: We will start a bowel prep tomorrow for EGD and colonoscopy on Friday. The patient did eat solid diet for supper including grapes and melons. Job ID: [id number]
[2019-12-07] MEDS: Flecainide 50 MG TAB PO SCH ×2 (09:39→20:47)
[2019-12-07] MEDS: DULoxetine 60 MG CAP PO SCH (09:39)
[2019-12-07] MEDS: Nebivolol HCl 5 MG TAB PO SCH (09:39)
[2019-12-07] MEDS: Aspirin 81 mg Enteric Coated Tablet PO SCH (09:39)
--- NOTE | 2019-12-07 13:07 | PDOC.HOSPP ---
- Subjective Encounter Date: 12/07/19 Encounter Time: 10:35 Subjective: no chest pain or palp feels better no vidya bleeding - Objective Vital Signs & Weight: Vital Signs (12 hours) Temp Pulse Resp BP Pulse Ox 12/07/19 12:00 97.4 F L 86 16 133/76 99 12/07/19 11:58 98.2 F 110 H 16 125/82 100 12/07/19 09:30 97.6 F 112 H 16 122/70 100 12/07/19 04:00 98.2 F 76 15 103/63 96 Weight Weight 194 lb 12.8 oz I&O: 12/06/19 12/07/19 12/08/19 06:59 06:59 06:59 Intake Total 700 120 550 Output Total 1260 500 Balance -560 120 50 Result Diagrams: 12/06/19 05:01 12/06/19 08:39 Hospitalist ROS - Medication Medications: Active Medications Generic Name Dose Route Start Last Admin Trade Name Freq PRN Reason Stop Dose Admin Hydrocodone Bitart/Acetaminophen 2 tab 12/06/19 14:53 12/06/19 20:06 Hydrocodone/Acetaminophen 10/325 Mg Tablet PO 2 tab Q6H PRN Administration Pain 4-6 Alprazolam 1 mg 12/05/19 19:01 12/06/19 20:06 Alprazolam 1 Mg Tab PO 1 mg DAILYPRN PRN Administration Anxiety Aspirin 81 mg 12/06/19 09:00 12/07/19 09:39 Aspirin 81 Mg Enteric Coated Tablet PO 81 mg DAILY ANGELA Administration Duloxetine HCl 60 mg 12/06/19 09:00 12/07/19 09:39 Duloxetine 60 Mg Cap PO 60 mg DAILY ANGELA Administration Flecainide Acetate 100 mg 12/06/19 21:00 12/07/19 09:39 Flecainide 50 Mg Tab PO 100 mg Q12HR ANGELA Administration Morphine Sulfate 2 mg 12/06/19 12:18 12/06/19 12:25 Morphine 2 Mg/Ml Vial SLOW IVP 2 mg Q6H PRN Administration Severe Pain (7-10) Nebivolol 5 mg 12/06/19 09:00 12/07/19 09:39 Nebivolol Hcl 5 Mg Tab PO 5 mg DAILY ANGELA Administration Quetiapine Fumarate 50 mg 12/05/19 21:00 12/06/19 20:06 Quetiapine Fumarate 25 Mg Tab PO 50 mg HS ANGELA Administration Sodium Chloride 10 ml 12/05/19 18:53 12/06/19 20:07 Flush - Normal Saline 10 Ml Syringe IVF 10 ml PRN PRN Administration Saline Flush - Exam General Appearance: awake alert Eye: PERRL, anicteric sclera ENT: no oropharyngeal lesions, moist mucosa Neck: supple, no JVD Heart: RRR, no murmur Respiratory: no wheezes, no rales Gastrointestinal: soft, non-tender, non-distended, normal bowel sounds Extremities: no cyanosis, no edema Neurological: cranial nerve grossly intact, no focal deficits Psychiatric: normal affect, A&O x 3 Hosp A/P (1) Atrial fibrillation with RVR Code(s): I48.91 - UNSPECIFIED ATRIAL FIBRILLATION Status: Acute (2) History of atrial fibrillation Code(s): Z86.79 - PERSONAL HISTORY OF OTHER DISEASES OF THE CIRCULATORY SYSTEM Status: Chronic (3) Atrial septal defect Code(s): Q21.1 - ATRIAL SEPTAL DEFECT Status: Chronic (4) Depression Code(s): F32.9 - MAJOR DEPRESSIVE DISORDER, SINGLE EPISODE, UNSPECIFIED Status: Chronic Qualifiers: Depression Type: major depressive disorder Psychotic features: without psychotic features (5) Fibromyalgia Status: Chronic (6) Iron deficiency anemia Code(s): D50.9 - IRON DEFICIENCY ANEMIA, UNSPECIFIED Status: Chronic - Plan in sinus rhythm now, is on flecainide recent pcm insertion on 11/21, h/o prior ablations h/h 09/10, mcv is 70, likely has chronic anemia prior egd 3 yrs back when her Hb was 5g was normal per patient and she had colonoscopy >8yrs back was normal. continue bystolic, seroquel, synthroid dc aspirin for now for EGD and colonoscopy in am
--- NOTE | 2019-12-07 15:01 | EKG ---
Test Reason : Blood Pressure : / mmHG Vent. Rate : 075 BPM Atrial Rate : 075 BPM P-R Int : 192 ms QRS Dur : 082 ms QT Int : 376 ms P-R-T Axes : 000 002 028 degrees QTc Int : 419 ms Electronic atrial pacemaker When compared with ECG of 05-DEC-2019 18:18, (Unconfirmed) Previous ECG has undetermined rhythm, needs review Confirmed by TOBY LOPEZ (2) on 12/07/2019 3:01:30 PM Referred By: SHERIE Confirmed By:TOBY LOPEZ
[2019-12-07] MEDS ORDERED: GoLYTELY 4,000 ml Bottle PO SCH ×2 (15:30→17:00)
--- NOTE | 2019-12-07 15:40 | PRG ---
DATE OF SERVICE: SUBJECTIVE: Ms. Blue is feeling pretty well. She is not having any chest pain or palpitations. She reports she never sees any blood in the stool or in the urine. She is back in sinus rhythm. She is anticipating bowel preparation tonight for procedure tomorrow. OBJECTIVE: VITAL SIGNS: Temperature 98, pulse 77, blood pressure 106/59, 98% oxygen saturation on room air. GENERAL: No acute distress, sitting up in bed comfortably. HEART: Regular rate and rhythm. LUNGS: Clear to auscultation bilaterally. ABDOMEN: Soft, nontender to palpation. EXTREMITIES: No peripheral edema. LABORATORY STUDIES: No new labs today. Labs from yesterday showed hemoglobin 7.7, WBC 6.3, MCV 70.8, platelets 252. INR 1.0. Sodium 139, potassium 3.6, BUN 13, creatinine 0.71. COVID PCR is negative. ASSESSMENT AND PLAN: 1. Chronic iron deficiency anemia. 2. Atrial fibrillation, converted back to sinus rhythm at this time, on flecainide. We will stick with the plan for diagnostic EGD and colonoscopy tomorrow after bowel preparation this evening. The patient desires to proceed. Further recommendations following EGD/colonoscopy. Job ID: [id number]
--- NOTE | 2019-12-07 16:14 | PDOC.EP ---
- Subjective Date: 12/07/19 Time: 08:00 Interval History: she is in better spirits today encourage that she is maintaining sinus rhythm. She denies any heart racing, palpitations, chest pain, passing out or near syncopal episodes. She denies any stroke or stroke-like symptoms - Review of Systems Constitutional: denies: chills, fever, malaise, sweats, weakness, other Respiratory: denies: cough, dry, hemoptysis, pleuritic pain, shortness of breath, SOB with excertion, sputum, wheezing, other Cardiology: denies: chest pain, edema, heart racing, light headedness, paroxysmal noc. dyspnea, orthopnea, palpitations, passing out, pleuritic pain, pressure, swelling, other - Objective Allergies/Adverse Reactions: Allergies Allergy/AdvReac Type Severity Reaction Status Date / Time latex Allergy Verified 06/16/19 08:24 Penicillins Allergy Verified 06/16/19 08:24 Current Medications Acetaminophen (Acetaminophen 325 Mg Tab) 650 mg PO Q4H PRN PRN Reason: Headache/Fever/Mild Pain (1-3) Hydrocodone Bitart/Acetaminophen (Hydrocodone/Acetaminophen 10/325 Mg Tablet) 2 tab PO Q6H PRN PRN Reason: Pain 4-6 Last Admin: 12/06/19 20:06 Dose: 2 tab Documented by: Alprazolam (Alprazolam 1 Mg Tab) 1 mg PO DAILYPRN PRN PRN Reason: Anxiety Last Admin: 12/06/19 20:06 Dose: 1 mg Documented by: Duloxetine HCl (Duloxetine 60 Mg Cap) 60 mg PO DAILY [facility] Last Admin: 12/07/19 09:39 Dose: 60 mg Documented by: Flecainide Acetate (Flecainide 50 Mg Tab) 100 mg PO Q12HR [facility] Last Admin: 12/07/19 09:39 Dose: 100 mg Documented by: Morphine Sulfate (Morphine 2 Mg/Ml Vial) 2 mg SLOW IVP Q6H PRN PRN Reason: Severe Pain (7-10) Last Admin: 12/06/19 12:25 Dose: 2 mg Documented by: Nebivolol (Nebivolol Hcl 5 Mg Tab) 5 mg PO DAILY [facility] Last Admin: 12/07/19 09:39 Dose: 5 mg Documented by: Nitroglycerin (Nitroglycerin 0.4 Mg Tab (25 Tab Bottle)) 0.4 mg SL Q5MIN PRN PRN Reason: Chest Pain Ondansetron HCl (Ondansetron Odt 4 Mg Tab) 4 mg PO Q6H PRN PRN Reason: Nausea/Vomiting Ondansetron HCl (Ondansetron Pf 4 Mg/2 Ml Vial) 4 mg IVP Q6H PRN PRN Reason: Nausea/Vomiting Polyethylene Glycol/Electrolytes (Golytely 4,000 Ml Bottle) 4,000 ml PO ONE ANGELA Stop: 12/07/19 21:00 Polyethylene Glycol/Electrolytes (Golytely 4,000 Ml Bottle) 4,000 ml PO NOW ANGELA Stop: 12/08/19 19:30 Quetiapine Fumarate (Quetiapine Fumarate 25 Mg Tab) 50 mg PO HS [facility] Last Admin: 12/06/19 20:06 Dose: 50 mg Documented by: Sodium Chloride (Flush - Normal Saline 10 Ml Syringe) 10 ml IVF PRN PRN PRN Reason: Saline Flush Last Admin: 12/06/19 20:07 Dose: 10 ml Documented by: Vital Signs & Weight: Vital Signs Temp Pulse Resp BP Pulse Ox 12/07/19 14:51 98 F 77 16 106/59 L 98 12/07/19 12:00 97.4 F L 86 16 133/76 99 12/07/19 11:58 98.2 F 110 H 16 125/82 100 12/07/19 09:30 97.6 F 112 H 16 122/70 100 Weight 194 lb 12.8 oz I/O: I/O 12/06/19 12/07/19 12/08/19 06:59 06:59 06:59 Intake Total 700 120 790 Output Total 1260 500 Balance -560 120 290 - Medication Contraindications No Anticoagulant reason: Treatment not indicated - Physical Exam General: alert & oriented x3, appears well, no apparent distress, speech clear, affect appropriate HEENT: mucus membranes moist, normocephaly Neck: supple neck, midline trachea, no JVD/HJR, no lymphadenopathy Cardiology: regular rate and rhythm, no murmur, regular rate, regular rhythm, PMI nondisplaced Lungs: clear to auscultation, normal breath sounds, normal exam, no wheeze, rales, rhonchi, no wheezes, no rales, no rhonchi Neurology: cranial nerve 2-12 intact, grossly intact, motor function intact, sensory function intact, negative rhomberg, coordination normal, no lateralizing findings Abdomen: unremarkable, active bowel sounds, soft, non-tender, no masses, no pulsations/bruits, no hepatosplenomegaly, HJR negative Extremities: dry, strong pulses, warm Skin: device site stable w/o swelling, left sided device. negative: bruising, drainage, erosion Musculoskeletal: normal range of motion - Labs Result Diagrams: 12/06/19 05:01 12/06/19 08:39 - EKG Interpretation EKG Method: Telemetry EKG shows: Sinus rhythm - Device Device: single, pacemaker Device Result: [facility] - Assessment/Plan Assessment/Plan: 1. right atrial tachycardia - early recurrence in the inflammatory phase following extensive right atrial ablation with close proximity to the sinoatrial node - started flecainide 100 mg p.o. b.i.d., QRS is stable on a 12 lead EKG today. Baseline QRS was 76 milliseconds, currently 82 milliseconds - plan to continue flecainide for 6 weeks post ablation then stop unless recurrences are seen despite ongoing therapy 2. sick sinus syndrome - status post recent single right atrial pacemaker implant around 11/23 3. single-chamber atrial pacemaker - lower rate limit increased to 75 beats per minute yesterday, and she was seen to go into atrial tachycardia with slower sinus rates - AF suppression enabled 4. anemia acute versus chronic - pending GI evaluation and endoscopy OK for DC by EP. rhythm stable overnight QRS stable on current flecainide dose. would recommend continuing Bystolic for the AV dayanna blocking properties with concurrent flecainide. Follow up in 6 weeks as outpatient to potentially stop flecainide and check pacemaker.
[2019-12-07] MEDS: ALPRAZolam 1 MG TAB PO PRN (20:47)
[2019-12-08 08:27] LABS: #Eosinphils 0.1 thou/uL (0.0-0.7); #Lymphocytes 1.2 thou/uL (1.20-3.40); #Monocytes 0.7 thou/uL (0.11-0.59); #Neutrophils 2.6 thou/uL (1.40-6.50); %Basophils 1.1 % (0.0-1.0); %Eosinophils 2.4 % (0.0-10.0); %Lymphocytes 26.4 % (21.0-51.0); %Monocytes 14.4 % (0.0-10.0); %Neutrophils 55.7 % (42.0-75.0); Hemoglobin 7.8 g/dL (12.0-16.0); Mean Corpuscular HGB CONC 30.4 g/dL (32.0-36.0); Mean Corpuscular Hemoglobin 21.5 pg (27.0-31.0); Mean Corpuscular Volume 70.7 fL (78.0-98.0); Mean Platelet Volume 11.4 fL (7.4-10.4); Platelet Count 218 thou/uL (130-400); RBC Distribution Width 16.8 % (11.5-14.5); Red Blood Cell (RBC) Count 3.64 mill/uL (4.20-5.40); White Blood Cell (WBC) Count 4.7 thou/uL (4.8-10.8)
[2019-12-08 09:15] LABS: Hypochromia MODERATE=16-30 cells (100X) (0-5/hpf); MDiff Complete? YES; Microcytosis MODERATE=15-30 cells (100X) (0-5/hpf); Platelet Morphology Comment Appears Adequate; Polychromasia SLIGHT = 2-3 cells (100X) (0-2/hpf)
[2019-12-08] MEDS ORDERED: PROPOFOL 200 MG/20 ML VIAL ONE (09:31)
[2019-12-08] MEDS ORDERED: Lidocaine 1% PF 5 ML VIAL ONE (09:31)
[2019-12-08 09:39] LABS: Calcium 9.5 mg/dL (7.8-10.44); Chloride 105 mmol/L (98-107); Potassium 4.3 mmol/L (3.5-5.1); Sodium 139 mmol/L (136-145)
[2019-12-08 09:40] LABS: Glucose 100 mg/dL (80-115)
[2019-12-08 09:41] LABS: Anion Gap 17 mmol/L (10-20); Carbon Dioxide 21 mmol/L (23-31)
[2019-12-08 09:43] LABS: Calc. Creatinine Clearance 104 mL/min (70-130); Estimated GFR-MDRD 81
[2019-12-08 09:44] LABS: BUN (Urea Nitrogen) 10 mg/dL (9.8-20.1)
[2019-12-08] MEDS ORDERED: Promethazine HCl 25 MG/ML VIAL IM PRN (11:28)
[2019-12-08] MEDS ORDERED: Ondansetron HCl/PF 4 MG/2 ML Vial IVP PRN (11:28)
[2019-12-08] MEDS ORDERED: Promethazine HCl 25 MG/ML VIAL SLOW IVP PRN (11:28)
--- NOTE | 2019-12-08 11:43 | OP ---
DATE OF PROCEDURE: 12/08/2019 PROCEDURES PERFORMED: 1. Esophagogastroduodenoscopy with biopsy. 2. Colonoscopy. PREMEDICATION: Given by Anesthesiology Department. PRE PROCEDURE DIAGNOSIS: Chronic iron deficiency anemia. POSTPROCEDURE DIAGNOSES: 1. Normal upper endoscopy. 2. Suboptimal colon prep, normal colonoscopy without any gross lesion. DESCRIPTION OF PROCEDURE: Written consents were obtained prior to procedure. After adequate sedation, forward viewing endoscope was advanced down the stomach under direct vision to the third portion of duodenum. The duodenum appeared normal. The bulb appeared normal. Biopsies obtained to evaluate for celiac disease as a cause of her chronic iron-deficiency anemia. The gastric antrum, body, fundus, and cardia all appeared normal. GE junction was located for 40 cm. The esophagus appeared normal. The patient was then repositioned for colon exam. Digital exam performed was normal. The endoscope was advanced to the cecum with ease. The quality of the bowel prep was somewhat suboptimal in the right colon. However, no gross lesion was seen. The cecum, ascending colon, hepatic flexure, transverse colon, splenic flexure, descending colon, and rectosigmoid colon all appeared normal. Retroflexion showed very small grade 1 internal hemorrhoids. The colon was then decompressed, the instrument was then fully removed. The patient tolerated the procedure well. ASSESSMENT: 1. Normal upper endoscopy and colonoscopy. 2. Mildly suboptimal bowel prep in the right colon. 3. Status post biopsies small bowel to evaluate for celiac disease. RECOMMENDATION: 1. The patient can be discharged home from GI standpoint. 2. She can start on anticoagulant if indicated from Cardiology standpoint. 3. We will follow up on biopsy results. Job ID: [id number]
[2019-12-08] MEDS: Flecainide 50 MG TAB PO SCH (12:02)
[2019-12-08] MEDS: DULoxetine 60 MG CAP PO SCH (12:02)
[2019-12-08] MEDS: Nebivolol HCl 5 MG TAB PO SCH (12:02)
[2019-12-08 12:10] VITALS: BP 140/74; TEMP 98.4
--- NOTE | 2019-12-08 15:39 | DIS ---
DATE OF ADMISSION: 12/06/2019 DATE OF DISCHARGE: 12/08/2019 DISCHARGE DISPOSITION: Home. PRIMARY DISCHARGE DIAGNOSES: 1. Atrial arrhythmia. 2. History of atrial fibrillation, atrial septal defect, severe anemia, depression, fibromyalgia. PROCEDURES DONE DURING HOSPITALIZATION: Chest x-ray done showed no acute findings. Echo with 2D Doppler showed ejection fraction of 55% to 60%. Upper and lower endoscopies done on 12/08/2019 showed normal upper endoscopy and colonoscopy. She has had biopsies of the small bowel to evaluate celiac disease. H and H 7.8 and 25, platelet count 218, MCV 70, BUN 10, creatinine 0.7, serum iron 25, percent saturation 6, TIBC 419, ferritin 10. Total cholesterol 190, triglycerides 105, LDL 107, HDL 62, vitamin B12 of 654, folic acid 9.2, BNP 185. COVID-19 PCR was not detected on 12/05/2019. DISCHARGE MEDICATIONS: 1. Ferrous sulfate 325 mg p.o. daily. 2. Flecainide 100 mg p.o. twice daily. 3. Nebivolol 5 mg p.o. daily. 4. Xanax 1 mg p.o. daily. 5. Seroquel extended release 50 mg p.o. q.h.s. 6. [place] p.r.n. for pain. 7. Aspirin 81 mg p.o. daily. ALLERGIES: ALLERGIC TO LATEX AND PENICILLIN. DISCHARGE PLAN: The patient to follow up with Dr. Ole Lubin in 3 to 4 weeks; primary care physician, Dr. Vivar, in 1 week. BRIEF COURSE DURING HOSPITALIZATION: The patient initially came to hospital with complaints of palpitation. She has had recent extensive EP studies done including radiofrequency energy lesions delivered with single-chamber cardiac pacemaker implanted recently prior to hospitalization. The patient was found to be in atrial tachycardia and was placed on Cardizem drip. This was escalated further in view of uncontrolled rate. She has had consultation with Dr. Ole Lubin. The patient has had her pacemaker interrogated and pace termination done, which controlled her rhythm. She was placed on flecainide along with lower dose of nebivolol at 5 mg daily. The patient remained in sinus rhythm all through her stay. The patient's initial hemoglobin was 9, subsequently dropped down to 7.7. The patient did not have any active bleeding as such. She has had consultation with Dr. Jaime for Gastroenterology. Both upper and lower endoscopies were done, which have not revealed any active bleeding source. In view of this, the patient will not be placed on any anticoagulation as of now, and the patient has had atrial tachycardia, which did not require anticoagulation per Dr. Lubin. She will continue 6 weeks of flecainide and will be re-evaluated for likely discontinuation of flecainide and going back to her 10 mg of Bystolic when she has outpatient appointment with Dr. Lubin in 4 to 6 weeks. Prior to discharge, she is ambulating and tolerating oral solid diet. She is otherwise hemodynamically stable. Please note, I have seen and examined the patient on the day of discharge. Job ID: [id number] MTDD
--- NOTE | 2019-12-08 15:40 | PDOC.EP ---
- Subjective Date: 12/08/19 Time: 08:00 Interval History: upper and lower endoscopy today. She is hungry but no severe complaints or concerns. - Review of Systems Respiratory: denies: cough, dry, hemoptysis, pleuritic pain, shortness of breath, SOB with excertion, sputum, wheezing Cardiology: denies: chest pain, edema, heart racing, light headedness, orthopnea, paroxysmal noc. dyspnea, palpitations, passing out, pleuritic pain, pressure, swelling Gastrointestinal: reports: diarrhea. denies: abdominal pain, constipation, nausea, vomitting - Objective Allergies/Adverse Reactions: Allergies Allergy/AdvReac Type Severity Reaction Status Date / Time latex Allergy Verified 06/16/19 08:24 Penicillins Allergy Verified 06/16/19 08:24 Vital Signs & Weight: Vital Signs Temp Pulse Resp BP BP Pulse Ox 12/08/19 11:55 98.4 F 77 20 140/74 100 12/08/19 08:41 98 12/08/19 08:21 98.7 F 76 16 136/67 98 12/08/19 04:00 98.6 F 75 16 124/72 96 Weight 189 lb I/O: I/O 12/07/19 12/08/19 12/09/19 06:59 06:59 06:59 Intake Total 120 1150 Output Total 500 Balance 120 650 - Medication Contraindications No Anticoagulant reason: Treatment not indicated - Physical Exam General: alert & oriented x3, appears well, speech clear HEENT: mucus membranes moist, normocephaly, mucus membranes dry Neck: supple neck, midline trachea, no lymphadenopathy Cardiology: regular rate and rhythm, no murmur, PMI nondisplaced Lungs: clear to auscultation, normal breath sounds, no wheeze, rales, rhonchi Neurology: cranial nerve 2-12 intact, grossly intact, no lateralizing findings Abdomen: unremarkable, active bowel sounds Skin: device site stable w/o swelling, left sided device (site check stable post implant). negative: bruising, drainage, hematoma, swelling - Labs Result Diagrams: 12/08/19 07:47 12/08/19 09:11 - EKG Interpretation EKG shows: Sinus rhythm - Device Device: single, pacemaker Device Result: [facility] - Assessment/Plan Assessment/Plan: 1. right atrial tachycardia - early recurrence in the inflammatory phase following extensive right atrial ablation with close proximity to the sinoatrial node - started flecainide 100 mg p.o. b.i.d., QRS is stable on a 12 lead EKG today. Baseline QRS was 76 milliseconds, currently 82 milliseconds - plan to continue flecainide for 6 weeks post ablation then stop unless recurrences are seen despite ongoing therapy 2. sick sinus syndrome - status post recent single right atrial pacemaker implant around 11/23 3. single-chamber atrial pacemaker - lower rate limit increased to 75 beats per minute yesterday, and she was seen to go into atrial tachycardia with slower sinus rates - AF suppression enabled 4. anemia acute versus chronic - pending GI evaluation and endoscopy OK for DC by EP. rhythm stable overnight QRS stable on current flecainide dose. would recommend continuing Bystolic for the AV dayanna blocking properties with concurrent flecainide. Follow up in 4 weeks already scheduled as outpatient to potentially stop flecainide and check pacemaker. No need for OAC at this time with her atrial tachycardia. No Afib/flutter.
--- NOTE | 2019-12-10 19:36 | PQF ---
Dear : Shruthi Gonzáles Date 12/10/19 Please exercise your independent, professional judgment in responding to the clarification form. Clinical indicators are provided on the bottom of this form for your review Can you please further clarify the diagnosis of the patient? Please check appropriate box(es): AMI TYPE: [ ] Type 1 W[place] (NSTEMI) [ ] Type 2 [place] (T2MI) secondary to: [ x] Insignificant EKG findings with insignificant elevation in troponin [ ] Other diagnosis please specify: [ ] Unable to determine Physician Signature: Date/Time: For continuity of documentation, please document condition throughout progress notes and discharge summary. Thank You. To be completed by CDI/Coding staff for physician review: Present Clinical Indicators - Signs / Symptoms / Labs Results and Location in Medical Record [ x ] Heart palpitation H and P pg.1 [ x ] T wave inversions are present in lead II and aVF and lead III H and P pg.4 [ x ] ST segment depression in V5 V6 H and P pg.4 [ x ] Consistent with inferior lateral ischemia H and P pg.4 [ x ] Elevated troponin H and P pg.4 [ x ] Troponin: 0.047H, 0.045H, 0.043H Laboratory Present Risk Factors Results and Location in Medical Record [ x ] Afib H and P pg.1 [ x ] Atrial septal defect H and P pg.1 [ x ] SVT H and P pg.4 [ x ] SSS Consult Dr. Lubin pg.1 [ x ] HTN Consult Dr. Lubin pg.1 [ x ] 68 years old H and P pg.1 Present Treatments Results and Location in Medical Record [ x ] EKG H and P pg.4 [ x ] Troponin Monitoring Laboratory [ x ] Chest X ray 12/04 [ x ] Cardiology Consult Consult Dr. Lubin pg.1 [ x ] ECG 12/06 [ x ] Echocardiogram 12/06 [ x ] IV Fluids MAR [ x ] Aspirin 81mg PO MAR [ x ] Nitroglycerin 0.4mg SL MAR [ x ] Morphine 2mg IVP Q6H PRN MAR CDS/It Programmer Signature: DaynaJair roachard Kv[employer] Phone #: ext [phone] Date 12/10/19 This is a permanent part of the Medical Record [facility]
== END 2019-12-08 13:55 | disposition home or self-care (01) | DRG 309 ==
LOC: ERS 17:21 → 2SW 18:35 → OBSVTOIN 12-06 12:19 → 2NO 12-07 14:41
PROVIDERS: ADMIT Family Medicine; ATTEND Family Medicine
PROC: 0DB88ZX Excision of Small Intestine, Via Natural or Artificial Opening Endoscopic, Diagnostic (ICD-10-PCS; principal; 2019-12-08)
PROC: 0DJD8ZZ Inspection of Lower Intestinal Tract, Via Natural or Artificial Opening Endoscopic (ICD-10-PCS; 2019-12-08)
DX: I47.1 Supraventricular tachycardia (principal); Q21.1 Atrial septal defect; I48.91 Unspecified atrial fibrillation; Z20.828 Contact with and (suspected) exposure to other viral communicable diseases; I10 Essential (primary) hypertension; D50.9 Iron deficiency anemia, unspecified; K21.9 Gastro-esophageal reflux disease without esophagitis; M54.5 Low back pain; G89.29 Other chronic pain; F32.9 Major depressive disorder, single episode, unspecified; M79.7 Fibromyalgia; Z79.899 Other long term (current) drug therapy; Z95.1 Presence of aortocoronary bypass graft; Z91.040 Latex allergy status; Z88.0 Allergy status to penicillin
CPT/HCPCS: 36415; 71045; 80048; 80053; 80061; 81001; 82553; 82607; 82728; 82746; 83540; 83550; 83735; 83880; 84443; 84484; 85025; 85046; 85379; 85610; 85730; 87086; 87635; 88305; 93005; 93010; 93306; 94760; 96366; 96372; 96375; G0378; J1160; J1650; J2270; J2704; J3490; U0003

== ENCOUNTER 2019-12-26 21:01 | Inpatient (IN) | payer MEDICARE ==
[2019-12-26] MEDS ORDERED: Diltiazem 125 MG/25 ML ONE (22:02)
[2019-12-26] MEDS ORDERED: Diltiazem HCl 125 MG, Admixture Fee 1 EACH in Sodium Chloride 0.9% 100 ML IVPB SCH ×2 (22:15)
[2019-12-26 22:21] LABS: #Basophils 0.1 thou/uL (0.0-0.2); #Eosinphils 0.2 thou/uL (0.0-0.7); #Lymphocytes 2.1 thou/uL (1.20-3.40); #Monocytes 0.5 thou/uL (0.11-0.59); #Neutrophils 2.7 thou/uL (1.40-6.50); %Basophils 1.4 % (0.0-1.0); %Eosinophils 3.2 % (0.0-10.0); %Lymphocytes 38.3 % (21.0-51.0); %Monocytes 9.4 % (0.0-10.0); %Neutrophils 47.7 % (42.0-75.0); Hemoglobin 8.3 g/dL (12.0-16.0); Mean Corpuscular HGB CONC 31.3 g/dL (32.0-36.0); Mean Corpuscular Volume 70.3 fL (78.0-98.0); Mean Platelet Volume 10.4 fL (7.4-10.4); Platelet Count 267 thou/uL (130-400); RBC Distribution Width 18.6 % (11.5-14.5); Red Blood Cell (RBC) Count 3.75 mill/uL (4.20-5.40); White Blood Cell (WBC) Count 5.6 thou/uL (4.8-10.8)
[2019-12-26 22:30] LABS: ALT (SGPT) 14 U/L (8-55); AST (SGOT) 24 U/L (5-34); Albumin 3.9 g/dL (3.4-4.8); Alkaline Phosphatase 136 U/L (40-110); Anion Gap 11 mmol/L (10-20); BUN (Urea Nitrogen) 17 mg/dL (9.8-20.1); Bilirubin, Total 0.2 mg/dL (0.2-1.2); Calc. Creatinine Clearance 0 mL/min (70-130); Calcium 9.3 mg/dL (7.8-10.44); Carbon Dioxide 29 mmol/L (23-31); Chloride 105 mmol/L (98-107); Estimated GFR-MDRD 69; Globulin 3.2 g/dL (2.4-3.5); Glucose 108 mg/dL (80-115); Potassium 3.8 mmol/L (3.5-5.1); Protein, Total 7.1 g/dL (6.0-8.3); Sodium 141 mmol/L (136-145)
[2019-12-27] MEDS ORDERED: ALPRAZolam 0.5 MG TAB ONE ×3 (00:10→10:27)
[2019-12-27 01:10] LABS: Troponin I Less than 0.010 ng/mL (< 0.028)
--- NOTE | 2019-12-27 01:18 | HP ---
REASON FOR ADMISSION: Palpitation. HISTORY OF PRESENT ILLNESS: This is a 69-year-old female patient who is known to have atrial arrhythmia post multiple ablations and in November, she was at [facility] in [place], underwent ablation and pacemaker placement, then discharged home, then came back to the hospital for atrial arrhythmia, found to be anemic, underwent an upper and lower scope that did not reveal any source of bleed. Currently, she follows with EP and the plan was to taper off flecainide and start Multaq. Today, she felt her usual palpitations with some chest discomfort and shortness of breath, described as an inability to take a full breath. She felt slightly lightheaded. She did contact her environmental studies program director who advised her to take Bystolic, but this did not relieve her symptoms. She came to the ER, she was found in SVT. She was started on a Cardizem drip and currently her rate is controlled. She appears to be comfortable, in no acute distress. PAST MEDICAL HISTORY: 1. Fibromyalgia. 2. Depression. 3. Iron-deficiency anemia. 4. Atrial septal defect. 5. Back surgery. 6. Hip surgery. 7. Neck surgery. 8. Anxiety. ALLERGIES: TO PENICILLIN AND LATEX. SOCIAL HISTORY: She does not smoke. Does not drink alcohol. FAMILY HISTORY: Reviewed, found to be negative for premature coronary artery disease. REVIEW OF SYSTEMS: All systems reviewed; except the above-mentioned, found to be negative. PHYSICAL EXAMINATION: GENERAL: Awake, alert, oriented, does not appear in distress. VITAL SIGNS: Her blood pressure is 115/72, pulse of 77, temperature is 98.1, saturating 98% on room air. HEENT: Head is nontraumatic, normocephalic. Pupils equal, reactive. Extraocular movements are intact. Nonicteric sclerae. Well-injected conjunctivae. Oral mucosa normal. Nasal mucosa normal. NECK: Supple. No adenopathy. No murmur. Thyroid is not palpable. Trachea is midline. No supraclavicular adenopathy. HEART: S1, S2 regular. No murmurs. No gallops. No friction rubs. No displacement of PMI. LUNGS: Clear to auscultation bilaterally. No wheezes, rhonchi, or crackles. ABDOMEN: Bowel sounds are positive. Nontender abdomen. No hepatosplenomegaly. EXTREMITIES: Lower extremity edema. No cyanosis noted. NEUROLOGIC: Cranial nerves 2 through 12 within normal limits. Normal motor function. Normal sensory function. Normal reflexes. LABORATORY DATA: Blood work shows WBC of 5.6, hemoglobin 8.3, platelets of 267. Sodium of 141, potassium 3.8, BUN 17, creatinine 0.83. EKG shows SVT. Currently, her monitor shows paced rhythm. ASSESSMENT AND PLAN: This is a 69-year-old female patient, presenting with recurrence of her SVT, responded well to Cardizem drip, ER did notify Electrophysiology and they will see her in the morning. Until then, she will remain on telemetry. We will cycle her cardiac enzymes and we will continue with IV Cardizem drip. For her fibromyalgia, we will resume her home medications. For her deep venous thrombosis, she will be on Lovenox subcutaneously. For her chronic anemia, her hemoglobin appears to be stable. We will monitor it on a daily basis. I did discuss with her code status. She wishes to be full code. Job ID: [id number]
[2019-12-27] MEDS ORDERED: ALPRAZolam 0.5 MG TAB PO SCH ×2 (03:15→09:00)
[2019-12-27 03:20] VITALS: BMI 27.5
[2019-12-27 04:16] LABS: #Basophils 0.1 thou/uL (0.0-0.2); #Eosinphils 0.1 thou/uL (0.0-0.7); #Monocytes 0.6 thou/uL (0.11-0.59); %Basophils 1.2 % (0.0-1.0); %Eosinophils 1.8 % (0.0-10.0); %Lymphocytes 34.5 % (21.0-51.0); %Monocytes 10.3 % (0.0-10.0); %Neutrophils 52.2 % (42.0-75.0); Hemoglobin 7.5 g/dL (12.0-16.0); Mean Corpuscular HGB CONC 31.1 g/dL (32.0-36.0); Mean Corpuscular Hemoglobin 21.4 pg (27.0-31.0); Mean Corpuscular Volume 68.8 fL (78.0-98.0); Mean Platelet Volume 10.6 fL (7.4-10.4); Platelet Count 234 thou/uL (130-400); RBC Distribution Width 18.1 % (11.5-14.5); Red Blood Cell (RBC) Count 3.49 mill/uL (4.20-5.40); White Blood Cell (WBC) Count 5.8 thou/uL (4.8-10.8)
[2019-12-27 04:35] LABS: Anion Gap 11 mmol/L (10-20); BUN (Urea Nitrogen) 18 mg/dL (9.8-20.1); Calc. Creatinine Clearance 96 mL/min (70-130); Calcium 9.2 mg/dL (7.8-10.44); Carbon Dioxide 28 mmol/L (23-31); Chloride 107 mmol/L (98-107); Estimated GFR-MDRD 74; Glucose 116 mg/dL (80-115); Potassium 3.7 mmol/L (3.5-5.1); Sodium 142 mmol/L (136-145)
[2019-12-27 04:41] LABS: Troponin I 0.017 ng/mL (< 0.028)
[2019-12-27] MEDS ORDERED: Enoxaparin Sodium 40 MG/0.4 ML SYRINGE SC SCH (09:00)
[2019-12-27] MEDS ORDERED: Enoxaparin Sodium 40 MG/0.4 ML SYRINGE ONE (09:13)
[2019-12-27] MEDS ORDERED: Aspirin 81 mg Enteric Coated Tablet PO SCH (10:15)
[2019-12-27] MEDS ORDERED: Nebivolol HCl 5 MG TAB PO SCH (10:15)
[2019-12-27 12:44] LABS: SARS-CoV-2 MS2 Positive; SARS-CoV-2 N Gene Negative; SARS-CoV-2 S Gene Negative; SARS-CoV-2 by NAA Not Detected (NotDetected); SARS-CoV-2 orf1ab Negative
[2019-12-27] MEDS ORDERED: Dronedarone HCl 400 MG TAB PO SCH (15:00)
[2019-12-27] MEDS ORDERED: QUEtiapine Fumarate ER 50 MG TAB PO SCH (21:00)
--- NOTE | 2019-12-27 21:38 | DIS ---
DATE OF ADMISSION: 12/26/2019 DATE OF DISCHARGE: 12/27/2019 PRIMARY CARE PHYSICIAN: Dr. Gregory Vivar. REASON FOR ADMISSION: Recurrent SVT. DIAGNOSES AT DISCHARGE: 1. Supraventricular tachycardia, resolved with diltiazem push. 2. Iron deficiency anemia. 3. Depression. 4. Fibromyalgia. 5. Atrial septal defect. 6. Anxiety. PROCEDURES: None. CONSULTATIONS: Electrophysiology, Dr. Lubin. SUMMARY OF HOSPITAL COURSE: This is a 69-year-old female with a known history of atrial arrhythmias and multiple ablations followed by Dr. Lubin. She has been on flecainide which she has been being tapered off due to some adverse effects and was supposed to start Multaq, but she has not started it yet. The day of admission, patient felt her usual palpitations with some chest discomfort and shortness of breath and felt slightly lightheaded. She contacted her lining cutter who told her to take Bystolic and this did not relieve her symptoms, so she came into the ER. She was found to be in SVT, was given Cardizem bolus prior to starting a drip and her rate converted back to sinus rhythm. The patient has been doing fine since then. Dr. Lubin was consulted, came and saw her in the emergency room. She was given a single dose of Multaq and he has cleared her to be discharged on Multaq and diltiazem. She is to stop her Seroquel due to interactions with the Multaq. DISCHARGE MANAGEMENT: DISPOSITION: Discharged home. ACTIVITY: As tolerated. DIET: Healthy heart, low-sodium diet. FOLLOWUP: Follow up with Dr. Lubin as directed and with Dr. Vivar in the next week or two. DISCHARGE MEDICATIONS: 1. Multaq 400 mg twice a day, called in by Dr. Lubin. 2. Diltiazem 30 mg four times a day a.c. and at bedtime, 120 tabs dispensed. 3. Alprazolam 1 mg daily. 4. Aspirin 81 mg daily. 5. Bystolic 5 mg daily. Job ID: [id number]
--- NOTE | 2019-12-28 08:29 | CON ---
DATE OF CONSULTATION: 12/27/2019 Dictated by Yashira Rodríguez, nurse practitioner, as a scribe for Dr. Ole Lubin. Consultation performed by Dr. Ole Lubin. REASON FOR CONSULTATION: Atrial arrhythmia management. PROBLEM LIST: 1. Atrial tachycardia. a. Status post atrial tachycardia ablation 11/23/2019 with 25 minute ablation time in close proximity to the sinoatrial node. 2. Sick sinus syndrome, status post single-chamber right atrial pacemaker implant on 11/24/2019. 3. History of atrial fibrillation, status post ablation in 2003 with a repeat in 2011. 4. Patent foramen ovale. 5. Hypertension. 6. Fibromyalgia. 7. Cardiac evaluations in the summer of 2019 with normal echo and stress test results, preserved LVEF 60% to 65%. 8. Iron deficiency anemia, chronic, status post extensive GI workup in November 2019 to rule out GI bleed. SUBJECTIVE: Ms. Blue returns to the emergency room with symptomatic tachycardia and heart rates of 130 beats per minute. She had recently undergone extensive focal atrial tachycardia ablation nearly 1 month ago and was having inflammatory early recurrence prompting flecainide initiation last month. This is inadequate at suppressing her arrhythmias and she continued to have symptomatic recurrences. Last week, her flecainide was stopped in favor of an alternate antiarrhythmic therapy with Multaq. She is currently in her washout period, but has not picked up her Multaq yet. She called over the weekend and her Bystolic was increased, but her symptoms persisted. She went to the emergency room and was given IV diltiazem bolus and drip, which converted her to sinus rhythm. Transmission from her pacemaker was sent but is not yet available for review. She is currently resting comfortably in bed with no complaints. PAST MEDICAL HISTORY: As above. REVIEW OF SYSTEMS: A 12-point review of systems negative except those listed above in the subjective portion. ALLERGIES: LATEX, PENICILLIN, ADVERSE REACTION TO TOPROL-XL CAUSING FATIGUE. HIGH DOSES OF BYSTOLIC CAUSED HEADACHE. HOME MEDICATION LIST: As follows: 1. Bystolic 5 mg daily. 2. Foster as needed. 3. Aspirin 81 mg daily. 4. Xanax daily as needed. 5. Seroquel 50 mg q.p.m. as a sleep aid. SOCIAL HISTORY: with 2 adult children as source of extreme stress. Denies alcohol, tobacco, or illicit drug use. FAMILY HISTORY: Noncontributory. OBJECTIVE: VITAL SIGNS: Afebrile. Sinus rhythm in the 80s on bedside telemetry with stable blood pressures and oxygen sats greater than 90% on room air. GENERAL: She is alert and oriented. Speech is clear. Affect is appropriate. She is in no apparent distress at the time of the exam. HEENT: She is normocephalic and atraumatic. Sclerae anicteric. Oral mucosa is moist, pink with adequate dentition. NECK: Supple without jugular venous distention. There is no lymphadenopathy. LUNGS: Clear to auscultation bilaterally. HEART: Rate is irregularly irregular with crisp S1-S2. There is a right-sided precordial pacemaker recently implanted. It was healing nicely and no signs of complication or infection. ABDOMEN: Soft, nontender, obese with no palpable masses. Hepatojugular reflux is negative. EXTREMITIES: Warm and dry to touch. Well perfused without clubbing, cyanosis, or edema. NEUROLOGIC: Grossly intact and nonfocal. Gait was not assessed. DATABASE: Telemetry and EKG shows sinus rhythm, previously with atrial tachycardia 138 beats per minute. Narrow QRS with one-to-one conduction. Currently demand atrial pacing is seen. Her lower rate limit is set at 75 beats per minute. IMPRESSION: 1. Early recurrence of atrial tachycardia status post ablation on 11/23/2019, refractory to flecainide. 2. Sinus node dysfunction status post single-chamber pacemaker implant in November 2019. 3. Chronic anemia. 4. Palpitations. PLAN AND RECOMMENDATIONS: Ms. Blue was taken off flecainide last week and allowing for a 3-5 day washout before initiating Multaq. This was called in last week, but she has not yet picked it up. I will give her 1st dose of Multaq 400 mg p.o. now and start her on low-dose diltiazem at 30 mg q.i.d. She will continue her Bystolic 5 mg daily and her aspirin. She will picker and sorter load and unload her Multaq later today and begin taking this tomorrow morning. She feels she is stable for discharge. She will contact my office with any further arrhythmia concerns. The patient is eager to go home and agreeable to this plan of care. Alternative antiarrhythmic options would be Tikosyn, but this is under national shortage and would require 3-day hospitalization for initiation and she prefers to try Multaq at this time. During her most recent hospitalization, she was discharged on diltiazem CD 120 mg daily, although this is not listed in her home medication list. It is not clear when she stopped this medication, but she does have this available to her. Thank you for allowing me to participate in the care of this patient. Job ID: [id number]
[2019-12-28] MEDS ORDERED: ALPRAZolam 1 MG TAB PO SCH (09:00)
[2019-12-28] MEDS ORDERED: Aspirin 81 mg Enteric Coated Tablet PO SCH (09:00)
[2019-12-28] MEDS ORDERED: Nebivolol HCl 5 MG TAB PO SCH (09:00)
== END 2019-12-27 16:42 | disposition home or self-care (01) | DRG 309 ==
LOC: ERS 21:01 → ERHOLD 22:24
PROVIDERS: ADMIT Internal Medicine; ATTEND Emergency Medicine
DX: I47.1 Supraventricular tachycardia (principal); Q21.1 Atrial septal defect; D50.9 Iron deficiency anemia, unspecified; F32.9 Major depressive disorder, single episode, unspecified; F41.9 Anxiety disorder, unspecified; M79.7 Fibromyalgia; Z20.828 Contact with and (suspected) exposure to other viral communicable diseases; G89.29 Other chronic pain; M54.9 Dorsalgia, unspecified; I49.5 Sick sinus syndrome; Z79.899 Other long term (current) drug therapy; Z79.82 Long term (current) use of aspirin; Z95.0 Presence of cardiac pacemaker; Z88.0 Allergy status to penicillin; Z91.040 Latex allergy status
CPT/HCPCS: 36415; 80048; 80053; 84484; 85025; 87635; 93005; 96365; 96366; 96374; J1650; J3490; U0003

== ENCOUNTER 2020-01-07 12:31 | Emergency (ER) | payer MEDICARE ==
[2020-01-07 14:38] LABS: Albumin 4.1 g/dL (3.4-4.8); Calcium 9.4 mg/dL (7.8-10.44); Chloride 104 mmol/L (98-107); Potassium 4.3 mmol/L (3.5-5.1); Sodium 139 mmol/L (136-145)
[2020-01-07 14:38] LABS: Hemoglobin 7.8 g/dL (12.0-16.0); Mean Corpuscular HGB CONC 28.9 g/dL (32.0-36.0); Mean Corpuscular Hemoglobin 19.9 pg (27.0-31.0); Mean Corpuscular Volume 68.8 fL (78.0-98.0); Mean Platelet Volume 10.3 fL (7.4-10.4); Platelet Count 369 thou/uL (130-400); RBC Distribution Width 18.1 % (11.5-14.5); Red Blood Cell (RBC) Count 3.93 mill/uL (4.20-5.40)
[2020-01-07 14:39] LABS: Alkaline Phosphatase 130 U/L (40-110); Anion Gap 12 mmol/L (10-20); Bilirubin, Total 0.4 mg/dL (0.2-1.2); Carbon Dioxide 27 mmol/L (23-31); Globulin 3.3 g/dL (2.4-3.5); Glucose 106 mg/dL (80-115); Protein, Total 7.4 g/dL (6.0-8.3)
[2020-01-07 14:39] LABS: #Basophils 0.1 thou/uL (0.0-0.2); #Eosinphils 0.1 thou/uL (0.0-0.7); #Lymphocytes 1.5 thou/uL (1.20-3.40); #Monocytes 0.7 thou/uL (0.11-0.59); #Neutrophils 3.7 thou/uL (1.40-6.50); %Basophils 0.9 % (0.0-1.0); %Eosinophils 1.1 % (0.0-10.0); %Lymphocytes 24.3 % (21.0-51.0); %Monocytes 11.7 % (0.0-10.0)
[2020-01-07 14:40] LABS: ALT (SGPT) 24 U/L (8-55); AST (SGOT) 34 U/L (5-34); BUN (Urea Nitrogen) 15 mg/dL (9.8-20.1); Calc. Creatinine Clearance 0 mL/min (70-130); Estimated GFR-MDRD 75
[2020-01-07 14:55] LABS: Anisocytosis SLIGHT = 6-15 cells (100X) (0-5/hpf); Elliptocytes SLIGHT = 2-5 cells (100X) (0-1/hpf); Hypochromia MODERATE=16-30 cells (100X) (0-5/hpf); MDiff Complete? YES; Microcytosis MODERATE=15-30 cells (100X) (0-5/hpf); Platelet Morphology Comment Appears Adequate; Polychromasia SLIGHT = 2-3 cells (100X) (0-2/hpf); Schistocytes SLIGHT = 2-5 cells (100X) (0-1/hpf); Target Cells MODERATE= 6-15 cells (100X) (0-1/hpf); Tear Drops SLIGHT = 2-5 cells (100X) (0-1/hpf)
== END 2020-01-07 21:30 | disposition home or self-care (01) ==
LOC: ERS 12:31
DX: D64.9 Anemia, unspecified (principal); Z79.899 Other long term (current) drug therapy; Z79.82 Long term (current) use of aspirin; F32.9 Major depressive disorder, single episode, unspecified
CPT/HCPCS: 36430; 80053; 85025; 86850; 86900; 86901; 86920; 93005; 99284; P9016; 36415